=== PATIENT | male | born 1990 | race Caucasian/White ===

== ENCOUNTER 2017-10-31 19:32 | Emergency (ER) | payer BC ==
[~2017-10-31] VITALS: Ht 188 cm; Wt 97.5 kg
[~2017-10-31 19:32] MED LIST: NORCO 5-325 TA1 EACH PO
[2017-10-31] MEDS ORDERED: PREDNISONE 20 M20 MG PO (20:27)
[2017-10-31 20:55] VITALS: BP 128/78
== END 2017-10-31 20:55 | disposition home or self-care (01) ==
LOC: M.ERS 19:32
DX: R22.1 Localized swelling, mass and lump, neck (principal); J45.909 Unspecified asthma, uncomplicated

== ENCOUNTER 2019-11-11 11:29 | Emergency (ER) | payer BC ==
[~2019-11-11] VITALS: Ht 188 cm; Wt 95.3 kg
[~2019-11-11 11:29] MED LIST changes: +PREDNISONE 20 M20 MG PO
[2019-11-11] MEDS ORDERED: KEFLEX500 M2 PO (12:44)
[2019-11-11 13:10] VITALS: BP 131/71
== END 2019-11-11 13:11 | disposition home or self-care (01) ==
LOC: M.ERS 11:29
DX: S61.214A Laceration without foreign body of right ring finger without damage to nail, initial encounter (principal); J45.909 Unspecified asthma, uncomplicated; W26.8XXA Contact with other sharp object(s), not elsewhere classified, initial encounter; Y93.89 Activity, other specified; Y92.89 Other specified places as the place of occurrence of the external cause; Y99.8 Other external cause status